=== PATIENT | female | born 1990 | race Caucasian/White ===

== ENCOUNTER 2018-04-12 18:17 | Inpatient (IN) | payer MEDICAID ==
[2018-04-12] MEDS ORDERED: OXYTOCIN 30 UNITS/LR 500 ML IV (20:00)
[2018-04-12] MEDS ORDERED: BUTORPHANOL 2 MG INJ IV (20:00)
[2018-04-12] MEDS ORDERED: MISOPROSTOL 200 MCG TAB PR (20:00)
[2018-04-12] MEDS ORDERED: METHYLERGONOVINE 0.2 MG INJ IM (20:00)
[2018-04-12] MEDS ORDERED: LIDOCAINE 1% (MPF) 30 ML INJ INJ (20:00)
[2018-04-12] MEDS ORDERED: CARBOPROST 250 MCG INJ IM (20:00)
[2018-04-12 22:47] LABS: ADD MAN DIFF? NO
[2018-04-12 22:49] LABS: BASOPHILS % 0.2 % (0.0-2.0); EOSINOPHILS # 0.1 10^3/ul (0.0-0.5); EOSINOPHILS % 0.8 % (0.0-7.0); HEMATOCRIT 33.4 % (37.0-47.0); HEMOGLOBIN 10.9 g/dl (12.0-16.0); LYMPHOCYTES # 1.6 10^3/ul (0.8-2.9); LYMPHOCYTES % 19.6 % (15.0-51.0); MEAN CORPUSCULAR HEMOGLOBIN 29.2 pg (29.0-33.0); MEAN CORPUSCULAR HGB CONC 32.6 g/dl (32.0-37.0); MEAN CORPUSCULAR VOLUME 89.5 fl (82.0-101.0); MONOCYTE # 0.5 10^3/ul (0.3-0.9); MONOCYTES % 6.5 % (0.0-11.0); NEUTROPHILS % 72.1 % (39.0-77.0); PLATELET COUNT 199 10^3/UL (140-415); RED BLOOD COUNT 3.73 10^6/ul (4.20-5.40)
[2018-04-12 22:49] LABS: WHITE BLOOD COUNT 8.4 10^3/ul (4.8-10.8)
[2018-04-12] MEDS: MISOPROSTOL 50 MCG CAPSULE PO (23:00)
[2018-04-12] MEDS: LACTATED RINGER'S 1,000 ML IV (23:01)
[2018-04-12 23:09] LABS: PROTIME 13.3 Sec (11.9-14.9)
[2018-04-12 23:10] LABS: PARTIAL THROMBOPLASTIN TIME 28.9 Sec (23.0-35.0)
[2018-04-12 23:38] LABS: HEPATITIS B SURFACE ANTIGEN NEGATIVE (NEGATIVE)
[2018-04-13] MEDS: LACTATED RINGER'S 1,000 ML IV ×4 (07:16→23:48)
[2018-04-13] MEDS: MISOPROSTOL 50 MCG CAPSULE PO ×3 (09:32→17:28)
[2018-04-13 19:31] LABS: RAPID PLASMA REAGIN NONREACTIVE (NR)
[2018-04-13] MEDS ORDERED: FENTAnyl 2MCG/ML-ROPIV 0.2% 100 ML (21:30)
[2018-04-13] MEDS ORDERED: DIPHENHYDRAMINE 50 MG INJ IV (23:00)
[2018-04-13] MEDS ORDERED: NALOXONE (0.4 MG/ML) INJ IV (23:00)
[2018-04-13] MEDS: FENTAnyl 2MCG/ML-ROPIV 0.2% 100 ML BAG EPI (23:49)
[2018-04-14] MEDS: MISOPROSTOL 50 MCG CAPSULE PO ×4 (00:17→05:00)
[2018-04-14] MEDS ORDERED: LIDOCAINE 0.5% (SDV) 50 ML INJ INJ (04:00)
[2018-04-14] MEDS ORDERED: MINERAL OIL LIGHT 10 ML VIAL TOP (04:00)
[2018-04-14] MEDS: LACTATED RINGER'S 1,000 ML IV ×3 (07:02→18:29)
[2018-04-14] MEDS: FENTAnyl 2MCG/ML-ROPIV 0.2% 100 ML BAG EPI ×3 (07:16→21:05)
[2018-04-14] MEDS: OXYTOCIN 30 UNITS/LR 500 ML IV (10:12)
[2018-04-14] MEDS: ONDANSETRON 4 MG INJ IV (20:03)
[2018-04-14] MEDS ORDERED: AMPICILLIN 2 GM/NS (PMX) 100 ML (22:25)
[2018-04-14] MEDS: AMPICILLIN 2 GM/NS (PMX) 100 ML IV (22:35)
[2018-04-15] MEDS: LACTATED RINGER'S 1,000 ML IV ×2 (02:03→05:51)
[2018-04-15] MEDS: AMPICILLIN 1 GM/NS (PMX) 50 ML IV ×3 (02:03→10:05)
[2018-04-15] MEDS: FENTAnyl 2MCG/ML-ROPIV 0.2% 100 ML BAG EPI ×2 (03:22→09:01)
[2018-04-15] MEDS: DEXTROSE 5%-LR 1,000 ML IV (08:59)
[2018-04-15] MEDS: OXYTOCIN 30 UNITS/LR 500 ML IV ×3 (14:18→18:25)
[2018-04-15] MEDS: IBUPROFEN 600 MG TAB PO (15:36)
[2018-04-15] MEDS ORDERED: ZOLPIDEM 5 MG TAB PO (18:30)
[2018-04-15] MEDS ORDERED: METHYLERGONOVINE 0.2 MG INJ IM (18:30)
[2018-04-15] MEDS ORDERED: OXYTOCIN 30 UNITS/LR 500 ML IV (18:30)
[2018-04-15] MEDS ORDERED: CARBOPROST 250 MCG INJ IM (18:30)
[2018-04-15] MEDS ORDERED: MISOPROSTOL 200 MCG TAB PR (18:30)
[2018-04-15] MEDS ORDERED: OXYCODONE/ASPIRIN (4.88/325) TAB PO (18:30)
[2018-04-15] MEDS: WITCH HAZEL/GLYCERIN PAD PR (21:25)
[2018-04-15] MEDS: LANOLIN 7 GM TUBE TOP (21:25)
[2018-04-15] MEDS: SENNA/DOCUSATE NA (8.6MG/50MG) TAB PO (21:25)
[2018-04-15] MEDS: BENZOCAINE 20% 56 ML SPRAY TOP (21:26)
[2018-04-15] MEDS: OXYCODONE/ASPIRIN (4.88/325) TAB PO (23:02)
[2018-04-16] MEDS: IBUPROFEN 600 MG TAB PO ×4 (00:20→17:44)
[2018-04-16 08:56] LABS: ADD MAN DIFF? NO
[2018-04-16 09:04] LABS: BASOPHILS % 0.2 % (0.0-2.0); EOSINOPHILS # 0.2 10^3/ul (0.0-0.5); EOSINOPHILS % 1.1 % (0.0-7.0); HEMATOCRIT 27.1 % (37.0-47.0); LYMPHOCYTES # 1.6 10^3/ul (0.8-2.9); LYMPHOCYTES % 10.4 % (15.0-51.0); MEAN CORPUSCULAR HEMOGLOBIN 29.8 pg (29.0-33.0); MEAN CORPUSCULAR HGB CONC 33.2 g/dl (32.0-37.0); MEAN CORPUSCULAR VOLUME 89.7 fl (82.0-101.0); MEAN PLATELET VOLUME 11.3 fl (7.4-10.4); MONOCYTE # 0.9 10^3/ul (0.3-0.9); MONOCYTES % 6.1 % (0.0-11.0); NEUTROPHIL # 12.3 10^3/ul (1.6-7.5); NEUTROPHILS % 81.6 % (39.0-77.0); PLATELET COUNT 150 10^3/UL (140-415); RED BLOOD COUNT 3.02 10^6/ul (4.20-5.40); RED CELL DISTRIBUTION WIDTH 13.2 % (11.5-14.5)
[2018-04-16] MEDS: SENNA/DOCUSATE NA (8.6MG/50MG) TAB PO ×2 (09:24→21:00)
[2018-04-17] MEDS: IBUPROFEN 600 MG TAB PO ×3 (00:16→12:32)
[2018-04-17] MEDS: SENNA/DOCUSATE NA (8.6MG/50MG) TAB PO (09:00)
[2018-04-17] MEDS: DIPHTH/TET/ACEL PERTUSS (ADULT) 0.5 ML VIAL IM* (09:00)
== END 2018-04-17 17:21 | disposition home or self-care (01) | DRG 807 ==
LOC: OBT 18:17 → L-D 04-14 19:43 → PP1 04-15 18:27 → L-D 18:18 → OBT 19:50 → L-D 19:50
PROVIDERS: Obstetrics & Gynecology
PROC: 10E0XZZ Delivery of Products of Conception, External Approach (ICD-10-PCS; principal; 2018-04-15)
PROC: 0HQ9XZZ Repair Perineum Skin, External Approach (ICD-10-PCS; 2018-04-15)
PROC: 0UQGXZZ Repair Vagina, External Approach (ICD-10-PCS; 2018-04-15)
PROC: 3E033VJ Introduction of Other Hormone into Peripheral Vein, Percutaneous Approach (ICD-10-PCS; 2018-04-15)
DX: O48.0 Post-term pregnancy (principal); Z37.0 Single live birth; O70.0 First degree perineal laceration during delivery; Z3A.40 40 weeks gestation of pregnancy
CPT/HCPCS: 62319; 76816; 85025; 85610; 85730; 86592; 86850; 86900; 86901; 87340; 90715; 99464